=== PATIENT | female | born 1955 | race Caucasian/White ===

== ENCOUNTER 2022-08-26 15:00 | Emergency (ER) | payer MEDICARE ==
[2022-08-26] MEDS ORDERED: Ondansetron PF 4 MG/2 ML Vial ONE (15:42)
[2022-08-26] MEDS ORDERED: Morphine 4 MG/ML VIAL ONE (15:42)
[2022-08-26] MEDS ORDERED: Boostrix 0.5 ML (Tdap) VIAL (>/=7 yrs of age) ONE (16:13)
[2022-08-26] MEDS ORDERED: Lidocaine 1% PF 5 ML VIAL ONE (16:13)
== END 2022-08-26 17:30 | disposition home or self-care (01) ==
LOC: CSHERS 15:00
DX: S01.81XA Laceration without foreign body of other part of head, initial encounter (principal); W19.XXXA Unspecified fall, initial encounter; Z23 Encounter for immunization
CPT/HCPCS: 12013; 70450; 72125; 90471; 90715; 96374; 96375; J2270; J2405